=== PATIENT | female | born 2000 | race Caucasian/White ===

== ENCOUNTER 2024-12-28 03:42 | Emergency (ER) | payer OTHER, SELFPAY ==
[2024-12-28 03:46] VITALS: BP 133/78; PULSE 79; RESP 18; TEMP 36.9; O2SAT 97; BMI 30.2
[2024-12-28] MEDS: ONDANSETRON 4 MG/2 ML INJ IV (04:00)
[2024-12-28 04:30] VITALS: BP 121/70; PULSE 63; RESP 16; O2SAT 98
--- NOTE | 2024-12-28 05:11 | ED_ITS ---
HPI - Nausea/Vomiting/Diarrhea General Chief complaint: Nausea/Vomiting/Diarrhea Stated complaint: Vomiting/ Hotflashes Time Seen by Provider: 12/28/24 04:07 Source: patient Mode of arrival: Ambulatory History of Present Illness HPI Narrative: Patient is a 24-year-old who has a history of dysmenorrhea presenting to day with abdominal cramping. Reports that she started her menstrual cycle yesterday and having increased pain today. Denies any increased bleeding. Reports changing 3 pads over the home night. However [place] 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 Typically she was allowed to sit down which she is not able to do it this particular position. She was not dizzy or lightheaded. Usually takes Midol for pain not quite helping. Needs a work note. He was sites that she threw up 4 times prior to arrival. Other than that it was no previous vomiting. The sometimes this happens to her. Related Data Previous Rx's Medication Instructions Recorded fluconazole 150 mg tablet 150 mg PO Q3D 2 doses #2 tabs 07/21/24 levonorgestrel 0.15 mg-ethinyl 1 tab PO DAILY #91 ea 07/21/24 estradiol 30 mcg tablets,3 mos pack(91) (Sergey) metronidazole 0.75 % (37.5 mg/5 1 appful vaginal BEDTIME 5 days 07/21/24 gram) vaginal gel #70 grams clindamycin phosphate 2 % vaginal 1 appful vaginal BEDTIME 5 days 11/13/24 cream #40 grams Allergies Allergy/AdvReac Type Severity Reaction Status Date / Time No Known Drug Allergies Allergy Unverified 07/21/24 15:29 Patient History Medical History (Updated 12/28/24 @ 05:27 by Ellen Lorenzo DO) Painful menstrual periods (~2021) Irregular menstrual cycle (~2021) Cervical cancer Human papilloma virus (HPV) DNA test negative LGSIL (low grade squamous intraepithelial dysplasia) Menorrhagia (~2021) Social History Smoking Status: Never smoker Smoking Status: Never smoker Exam Initial Vital Signs Initial Vital Signs: Vital Signs Temperature 98.5 F 12/28/24 03:46 Pulse Rate 79 12/28/24 03:46 Respiratory Rate 18 12/28/24 03:46 Blood Pressure 133/78 12/28/24 03:46 Pulse Oximetry 97 12/28/24 03:46 Oxygen Delivery Method Room Air 12/28/24 03:46 GENERAL: Alert well-appearing 24-year-old female and in no acute distress. HEENT: Head atraumatic,EOMI, pupils reactive, face symmetric, moist mucous membranes CARDIOVASCULAR: Regular rate and rhythm without murmurs, rubs or gallops. RESPIRATORY: Breath sounds equal bilaterally, no wheezes rales or rhonchi. ABDOMEN: Soft, nontender. Normoactive bowel sounds all 4 quadrants. No guarding or rebound. EXTREMITIES: Normal range of motion, no clubbing or edema. Neurovascularly intact NEUROLOGICAL: Alert and oriented x4.Normal gait and speech. Cranial nerves II through XII grossly intact. SKIN: Warm, dry, no laceration, no petechiae, no rashes or lesions. Course Orders Ordered: Discontinued Medications Ketorolac Tromethamine (Ketorolac 30 Mg/Ml Vial) 15 mg IV NOW ONE Stop: 12/28/24 05:19 Last Admin: 12/28/24 05:31 Dose: 15 mg Documented By: BRIGETTE Ondansetron HCl (Ondansetron 4 Mg/2 Ml Inj) 4 mg IV NOW PRN PRN Reason: Nausea And Vomiting Last Admin: 12/28/24 04:00 Dose: 4 mg Documented By: BRIGETTE Ondansetron HCl (Ondansetron 4 Mg Odt) 4 mg PO NOW PRN PRN Reason: Nausea And Vomiting Vital Signs Vital signs: Vital Signs - 8 hr 12/28/24 03:46 12/28/24 04:30 12/28/24 05:30 Temperature 98.5 F Pulse Rate 79 63 64 Respiratory Rate 18 16 14 Blood Pressure 133/78 121/70 Pulse Oximetry 97 98 98 Oxygen Delivery Method Room Air Room Air Room Air 12/28/24 05:33 12/28/24 05:33 Temperature Pulse Rate 74 Respiratory Rate 14 Blood Pressure 127/74 Pulse Oximetry 98 Oxygen Delivery Method Room Air MDM - Nausea/Vomiting/Diarrhea Lab Data Labs: Point of Care Testing Test Results Negative Urine Dip Bedside Urine Glucose Negative Bedside Urine Bilirubin + 1 Bedside Urine Ketone - Negative Urine Specific [place] 1.025 Bedside Urine Occult Blood +++ Bedside Urine pH 6 Bedside Urine Protein +/- 15 Bedside Urine Urobilinogen - Negative Bedside Urine Nitrite - Negative Bedside Urine Leukocytes - Negative Esterase MDM Narrative Medical decision making narrative: Patient is a 24-year-old female who has a history of dysmenorrhea presenting today with painful cramping. No significant heavy bleeding not dizzy or lighth eaded. Vitals are stable. She vomited 4 times prior to arrival but nothing more. On exam abdomen is soft nontender no peritoneal sign. At this time no blood work indicated although IV has been started she would like some pain medication. She was given Toradol and Zofran here in the ED. which does seem to help. Urinalysis negative for and UTI At this time no need for any further imaging. She overall appears well nontoxic pain is not out of proportion abdomen is soft nonacute. Differential diagnosis includes menometrorrhagia, dysmenorrhea ovarian cyst polycystic ovarian disease Discharge Plan Departure Patient Disposition: Home Clinical Impression: Severe dysmenorrhea Instructions: Painful Menstrual Periods Activity Restrictions/Additional Instructions: *You have been diagnosed with dysmenorrhea *What to do: At this time follow-up with your provider *Continue to take medications as directed *Follow up with your primary care provider in 2-3 days or call [phone] *Return to ER if you should have increasing pain more than 2 super pads in 1 hour dizziness lightheaded or any new, worsening or concerning symptoms Prescriptions: No Action metronidazole 0.75 % (37.5mg/5 gram) gel 1 appful vaginal BEDTIME 5 Days Qty: 70 3RF fluconazole 150 mg tablet 150 mg PO Q3D Qty: 2 3RF Rx Instructions: Repeat second dose 72 hrs after first dose levonorgestrel-ethinyl estrad [Jolessa] 0.15 mg-30 mcg (91) tablets,dose pack,3 month 1 tab PO DAILY Qty: 91 6RF clindamycin phosphate 2 % cream 1 appful vaginal BEDTIME 5 Days Qty: 40 5RF Referrals: ProviderHaily [Primary Care Provider] - Stand Alone Forms: Patient Portal/API/Survey, Work Release Note
[2024-12-28 05:30] VITALS: PULSE 64; RESP 14; O2SAT 98
[2024-12-28] MEDS: KETOROLAC 30 MG/ML VIAL 15 MG IV (05:31)
[2024-12-28 05:33] VITALS: BP 127/74; PULSE 74; RESP 14; O2SAT 98
== END 2024-12-28 05:43 | disposition home or self-care (01) ==
PROVIDERS: Emergency Provider Emergency Medicine
DX: N94.6 Dysmenorrhea, unspecified (principal)
CPT/HCPCS: 36415; 81003; 81025; 96374; 96375; 99284; J1885; J2405